=== PATIENT | female | born 1955 | race Caucasian/White ===

== ENCOUNTER 2020-11-12 08:42 | Day surgery (SDC) | payer MEDICARE, OTHER ==
[2020-11-12] MEDS ORDERED: Midazolam 1 MG/ML 2 ML SDV IV ONE (08:43)
[2020-11-12] MEDS ORDERED: Propofol 200 MG/20 ML SDV IV ONE (08:43)
[2020-11-12] MEDS ORDERED: Sodium Chloride 0.9% 10 ML Syringe FLUSH PRN (08:58)
[2020-11-12] MEDS ORDERED: Lactated Ringers 1,000 ML IV SCH (09:00)
--- NOTE | 2020-11-12 10:28 | PCM.OPNOTE ---
- General Post-Op/Procedure Note Date of Surgery/Procedure: 11/12/20 Operative Procedure(s): c scope with cold forceps biopsy Findings: ascending and sigmoid colon polyp Pre Op Diagnosis: hx of colon polyps Post-Op Diagnosis: ascending and sigmoid colon polyp Anesthesia Technique: MAC Primary Surgeon: Aquiles Nguyen Anesthesia Provider: Angela Moffett Pathology: ascending colon sigmoid colon Complications: None Condition: Good Free Text/Narrative:: see dictation #[id number]
[2020-11-12 10:45] VITALS: PULSE 77
[2020-11-12 11:15] VITALS: BP 114/75
--- NOTE | 2020-11-12 11:40 | PROC ---
DATE OF PROCEDURE: 11/12/2020 PROCEDURE PERFORMED: Colonoscopy with cold forceps biopsy. PREOPERATIVE DIAGNOSIS: Personal history of colon polyps. POSTOPERATIVE DIAGNOSIS: Polyp, ascending colon; polyp, sigmoid colon. INDICATIONS FOR PROCEDURE: This 65-year-old white female presents for followup colonoscopy. She has a personal history of colon polyps. She was offered and accepted C-scope. DESCRIPTION OF OPERATION: After an excellent IV sedation was administered, digital rectal exam was performed. No marked abnormality was noted. The flexible colonoscope was inserted and advanced without difficulty to the patient's cecum. The prep was excellent. The following findings were noted. Ascending colon, a small 6 mm polyp, biopsied with cold biopsy forceps, site was obliterated, submitted for permanent evaluation. Transverse colon was unremarkable. Descending colon was unremarkable. Distal sigmoid, a small 4 mm polyp, biopsied with cold biopsy forceps and submitted. Rectum and anus, unremarkable. The patient tolerated the procedure well, was taken to recovery room in good condition. Results will be sent to the patient via letter. /[id number]/[id number]
== END 2020-11-12 11:07 | disposition home or self-care (01) ==
LOC: FB.SDS 08:42
PROVIDERS: ATTEND Surgery
DX: Z12.11 Encounter for screening for malignant neoplasm of colon (principal); D12.2 Benign neoplasm of ascending colon; D12.5 Benign neoplasm of sigmoid colon; F41.9 Anxiety disorder, unspecified; Z98.890 Other specified postprocedural states; Z79.899 Other long term (current) drug therapy
CPT/HCPCS: 00811-QZ; J2250; J2704; J7120